=== PATIENT | female | born 1965 | race Caucasian/White ===

== ENCOUNTER 2019-03-01 07:43 | Day surgery (SDC) | payer OTHER ==
[~2019-03-01] VITALS: Ht 160 cm; Wt 83.5 kg
--- NOTE | 2019-03-01 09:24 | NUR ---
03/01/19 0984 Keyonna Pantoja 0920 PATIENT SLEEPING, AWAKENS WITH VERBAL STIMULI, DOES NOT ANSWER QUESTIONS, THEN BACK TO SLEEP. RESP EVEN AND UNLABORED, ROOM AIR SATS >90%.
--- NOTE | 2019-03-01 11:24 | NUR ---
1040 HERE FROM PACU PT STATES SHE FEELS SHE NEEDS TO REST A LITTLE LONGER BEFORE SHE CAN GET GO HOME. ALLOW TO SLEEP. AT BS.
--- NOTE | 2019-03-01 11:25 | NUR ---
1116 STATES SHE WANTS TO GO HOME. HELPING PT. VS TAKEN AND IV DCD.
--- NOTE | 2019-03-01 15:20 | OR ---
[facility] [address] [place], [place] [address] Signed DATE OF OPERATION: 03/01/2019 SURGEON: Araceli Reid MD PREOPERATIVE DIAGNOSIS: Screening. POSTOPERATIVE DIAGNOSIS: Small internal hemorrhoids. PROCEDURE: Colonoscopy without biopsy. ESTIMATED BLOOD LOSS: None. INDICATIONS: Misti is a 53-year-old female, who was asked to see me for her initial screening colonoscopy. She has no lower GI complaints. There is no family history of colon cancer or polyps. I had met with Misti in the office and I gave her a pamphlet on colonoscopy. We reviewed that together. She understands the nature of the test along with its risks including, but not limited to gas, bloating, crampy abdominal pain, bleeding, perforation requiring surgery, and missed diagnosis. She also understands the need for IV conscious sedation. She understands she will need an adult person to take her home afterwards. She had expressed understanding and wished to proceed. PROCEDURE NOTE: Misti was taken into our endoscopy suite and placed in the left lateral decubitus position. She was given a total of 6 mg of Versed and 125 mcg of fentanyl to cover the case. A digital rectal exam was performed and this was unremarkable. No external hemorrhoids. No masses. She had good sphincter tone. The adult colonoscope was introduced and advanced all around into the cecum under direct visualization of camera without difficulty. Her prep was quite good. The scope was slowly withdrawn. We took pictures throughout for photodocumentation. We could easily see the appendiceal orifice and the ileocecal valve. We saw no pathology throughout her entire colon or rectum. Upon retroflexion of the scope, she has very minimal internal hemorrhoid tissue. After this, the gas was suctioned out and the colonoscope removed. Misti tolerated the procedure quite well. RECOMMENDATIONS: Electronically Signed By: ARACELI REID MD 03/01/19 1520 PATIENT NAME: MISTI ARCINIEGA OPERATIVE REPORT DATE OF : 69 REPORT #: [id number] PHYSICIAN: ARACELI REID MD PCP: ERICKA SANTO MD REPORT IS CONFIDENTIAL AND NOT TO BE RELEASED WITHOUT AUTHORIZATION [facility] [address] [place] [id number] Signed Misti can return in 10 years for repeat colonoscopy. Araceli Reid MD ALB/MODL /[id number] cc: DO Ericka Gupta MD Andrew L Bower, MD Copies: LATISHA TALBOT ANDREW L MD ~ Electronically Signed By: ARACELI REID MD 03/01/19 1520 PATIENT NAME: MISTI ARCINIEGA OPERATIVE REPORT DATE OF : 69 REPORT #: [id number] PHYSICIAN: ARACELI REID MD PCP: ERICKA SANTO MD REPORT IS CONFIDENTIAL AND NOT TO BE RELEASED WITHOUT AUTHORIZATION
== END 2019-03-01 11:25 | disposition home or self-care (01) ==
LOC: DS 07:43 → OPS 07:43 → DS 07:49 → OPS 09:45 → DS 09:45 → OPS 11:25
PROVIDERS: Colon & Rectal Surgery
PROC: 0DJD8ZZ Inspection of Lower Intestinal Tract, Via Natural or Artificial Opening Endoscopic (ICD-10-PCS; principal; 2019-03-01 09:45)
DX: Z12.11 Encounter for screening for malignant neoplasm of colon (principal); K64.8 Other hemorrhoids; Z91.013 Allergy to seafood
CPT/HCPCS: 99153; G0500; J2250; J3010; J7120